=== PATIENT | male | born 1980 | race Hispanic/Latino ===

== ENCOUNTER 2017-08-15 11:25 | Inpatient (IN) | payer BC ==
[2017-08-15 11:29] VITALS: BMI 27.9
--- NOTE | 2017-08-15 11:53 | ED PDOC ---
Lower Extremity Pain/Injury Time Seen by Provider: 08/15/17 11:52 Chief Complaint (Nursing): Lower Extremity Problem/Injury Chief Complaint (Provider): leg pain History Per: Patient Additional Complaint(s): 36-year-old male with no past medical history presents to emergency department complaining of bilateral leg pain and cramping that started after patient did a spin class on Sunday. Patient states this was the first time he worked out in several months. Patient states pain is worse since Sunday and he is unable to bend his legs without severe discomfort. Patient has been taking Tylenol which has not helped. Denies fever or chills. He denies any chest pain, shortness of breath or dyspnea on exertion. PMD: [employer] Past Medical History Reviewed: Historical Data, Nursing Documentation, Vital Signs Vital Signs: Last Vital Signs Temp 98.6 F 08/15/17 11:43 Pulse 74 08/15/17 11:43 Resp 20 08/15/17 11:43 BP 149/94 H 08/15/17 11:43 Pulse Ox 99 08/15/17 11:43 - Medical History PMH: No Chronic Diseases - Surgical History Other surgeries: eye surgery - Family History Family History: States: No Known Family Hx - Living Arrangements Living Arrangements: With Family - Home Medications Home Medications: Ambulatory Orders Medication Instructions Recorded Multivit-Minerals/Folic Acid 1 tab PO DAILY 08/15/17 [Adult Multi Gummies] - Allergies Allergies/Adverse Reactions: Allergies Allergy/AdvReac Type Severity Reaction Status Date / Time Sulfa (Sulfonamide Allergy RASH Verified 08/15/17 11:42 Antibiotics) bee stings Allergy SWELLING Uncoded 08/15/17 11:42 Wells Criteria for PE - Wells Criteria for Pulmonary Embolism Clinical Signs and Symptoms of DVT: No P.E is #1 Diagnosis, or Equally Likely: No Heart Rate >100: No Immobilization at least 3 days;Surgery previous 4 weeks: No Previous, objectively diagnosed PE or DVT: No Hemoptysis: No Malignancy w/treatment within 6 months, or palliative: No Total Score: 0 Review of Systems ROS Statement: Except As Marked, All Systems Reviewed And Found Negative Constitutional: Negative for: Fever Cardiovascular: Negative for: Chest Pain Respiratory: Negative for: Cough Gastrointestinal: Negative for: Nausea, Vomiting Musculoskeletal: Positive for: Leg Pain Physical Exam - Reviewed Nursing Documentation Reviewed: Yes Vital Signs Reviewed: Yes - Physical Exam Appears: Positive for: Well, Non-toxic, No Acute Distress Skin: Negative for: Rash Eye Exam: Positive for: Normal appearance Cardiovascular/Chest: Positive for: Regular Rate, Rhythm Respiratory: Positive for: Normal Breath Sounds. Negative for: Wheezing, Respiratory Distress Extremity: Positive for: Other (Full range of motion of bilateral knees and hips with pain, no calf tenderness bilaterally) Neurologic/Psych: Positive for: Alert, Oriented - Laboratory Results Result Diagrams: 08/15/17 12:55 08/15/17 12:55 Urine dip results: Positive for: Blood (moderate), Protein (trace). Negative for: Leukocyte Esterase, Nitrate, Ketones, Glucose, Bilirubin - ECG Interpretation Of ECG: NSR 70 bpm, no acute finding, reviewed by PA and ED attending O2 Sat by Pulse Oximetry: 99 Pulse Ox Interpretation: Normal - Other Rad CXR X-Ray: Interpreted by Me, Viewed By Me X-Ray Interpretation: no acute finding Medical Decision Making Medical Decision Makin36 year old with bilateral leg pain Plan: CBC CMP CPK PO flexeril IV toradol IVF Urine dip PMD is [employer], case was d/w David Vergara NP, who will admit patient. Patient is aware of and agrees with admission. Spoke with Dr. Alice Beckham for nephrology consult, he states to order serum uric acid and urine myoglobin and started NS at 250 cc after 2nd bolus. Spoke with Dr. Delaney for GI consult, states to order hepatitis panel and abd US. Disposition - Clinical Impression Clinical Impression: Rhabdomyolysis - Disposition Disposition Time: 14:28 Condition: FAIR - Pt Status Changed To: Hospital Disposition Of: Inpatient - Admit Certification Admit to Inpatient:: After my assessment, the patient will require hospitalization for at least two midnights. This is because of the severity of symptoms shown, intensity of services needed, and/or the medical risk in this patient being treated as an outpatient. - POA Present On Arrival: None Results - Lab Results Lab Results: 08/15/17 08/15/17 12:55 12:55 WBC 11.2 H RBC 5.14 Hgb 15.9 Hct 45.9 MCV 89.2 MCH 30.9 MCHC 34.7 RDW 13.1 Plt Count 308 MPV 8.4 Neut % (Auto) 71.2 Lymph % (Auto) 19.1 L [place] % (Auto) 6.7 Eos % (Auto) 2.3 Baso % (Auto) 0.7 Neut # (Auto) 8.0 H Lymph # (Auto) 2.1 [place] # (Auto) 0.8 Eos # (Auto) 0.3 Baso # (Auto) 0.1 Sodium 142 Potassium 4.5 Chloride 103 Carbon Dioxide 30 Anion Gap 14 BUN 10 Creatinine 0.9 Est GFR ( Amer) > 60 Est GFR (Non-Af Amer) > 60 Random Glucose 90 Calcium 9.4 Total Bilirubin 0.7 AST 1443 H ALT 312 H Alkaline Phosphatase 74 Total Creatine Kinase 94118 H Total Protein 7.3 Albumin 4.3 Globulin 3.1 Albumin/Globulin Ratio 1.4
[2017-08-15] MEDS ORDERED: Sodium Chloride 0.9% 1,000 ML IV STA ×3 (12:14→14:17)
[2017-08-15 13:12] LABS: BASO # 0.1 K/uL (0.0-0.2); BASO % 0.7 % (0.0-2.0); EOS # 0.3 K/uL (0.0-0.7); EOS % 2.3 % (0.0-4.0); HEMOGLOBIN 15.9 g/dL (12.0-18.0); LYMPH # 2.1 K/uL (1.0-4.3); LYMPH % 19.1 % (20.0-40.0); MEAN CELL VOLUME 89.2 fl (80.0-94.0); MEAN CORPUSCULAR HEMOGLOBIN 30.9 pg (27.0-31.0); MEAN CORPUSCULAR HGB CONC 34.7 g/dL (33.0-37.0); MEAN PLATELET VOLUME 8.4 fl (7.2-11.7); MONO # 0.8 K/uL (0.0-0.8); MONO % 6.7 % (0.0-10.0); NEUT % 71.2 % (50.0-75.0); NRBC % 0.1 % (0.0-0.0); RBC 5.14 Mil/uL (4.40-5.90); RED CELL DISTRIBUTION WIDTH 13.1 % (11.5-14.5); WHITE BLOOD COUNT 11.2 K/uL (4.8-10.8)
[2017-08-15 13:25] LABS: ALB/GLOB RATIO 1.4 (1.0-2.1); ALBUMIN 4.3 g/dL (3.5-5.0); ALT/SGPT 312 U/L (21-72); BLOOD UREA NITROGEN 10 mg/dl (9-20); CALCIUM 9.4 mg/dL (8.4-10.2); GFR AFRICAN-AMERICAN > 60; GFR NON-AFRICAN AMERICAN > 60
[2017-08-15 13:44] LABS: AST/SGOT 1443 U/L (17-59)
--- NOTE | 2017-08-15 15:15 | RAD ---
HISTORY: admit COMPARISON: No prior. FINDINGS: LUNGS: No active pulmonary disease. PLEURA: No significant pleural effusion identified, no pneumothorax apparent. CARDIOVASCULAR: Normal. OSSEOUS STRUCTURES: No significant abnormalities. VISUALIZED UPPER ABDOMEN: Normal. OTHER FINDINGS: None. IMPRESSION: No active disease.
[2017-08-15 15:30] LABS: BARBITURATES, UR NEGATIVE (NEGATIVE); BENZODIAZEPINES, UR NEGATIVE (NEGATIVE); OPIATES, UR NEGATIVE (NEGATIVE); PHENCYCLIDINE, UR NEGATIVE (NEGATIVE)
--- NOTE | 2017-08-15 16:54 | US ---
HISTORY: elevated LFT's COMPARISON: None. TECHNIQUE: Sonographic evaluation of the abdomen. FINDINGS: LIVER: Measures 18.6 cm. Heterogeneous increased echogenicity of the liver parenchyma. No mass. No intrahepatic bile duct dilatation. GALLBLADDER: Unremarkable. No gallstones. COMMON BILE DUCT: Measures 4 mm. No stones. No dilatation. PANCREAS: Unremarkable as visualized. No mass. No ductal dilatation. RIGHT KIDNEY: Measures 12 x 4.7 x 3.7cm. Normal echogenicity. No calculus, mass, or hydronephrosis. LEFT KIDNEY: Measures 13.1 x 3.8 x 4.2cm. Normal echogenicity. No calculus, mass, or hydronephrosis. SPLEEN: The spleen is mildly enlarged measures 13.8 centimeter. AORTA: No aneurysmal dilatation. IVC: Unremarkable. OTHER FINDINGS: None. IMPRESSION: Heterogeneous echogenic and mildly enlarged liver suggestive of hepatic steatosis or liver parenchymal disease. Mild splenomegaly measures up to 13.8 centimeter. No evidence of cholelithiasis or cholecystitis.
[2017-08-15 21:07] LABS: HEPATITIS B SURFACE AG Negative (NEGATIVE)
[2017-08-15 21:12] LABS: HEPATITIS A IGM NEGATIVE (NEGATIVE); HEPATITIS B CORE AB NEGATIVE (NEGATIVE)
[2017-08-15 21:24] LABS: HEPATITIS C ANTIBODY NEGATIVE (NEGATIVE)
[2017-08-16] MEDS: Sodium Chloride 0.9% 1,000 ML IV SCH ×3 (02:38→12:35)
[2017-08-16 06:40] LABS: BASO # 0.1 K/uL (0.0-0.2); BASO % 0.8 % (0.0-2.0); EOS # 0.4 K/uL (0.0-0.7); EOS % 4.2 % (0.0-4.0); HEMOGLOBIN 14.4 g/dL (12.0-18.0); LYMPH # 2.9 K/uL (1.0-4.3); MEAN CELL VOLUME 89.3 fl (80.0-94.0); MEAN CORPUSCULAR HEMOGLOBIN 31.1 pg (27.0-31.0); MEAN CORPUSCULAR HGB CONC 34.8 g/dL (33.0-37.0); MEAN PLATELET VOLUME 8.2 fl (7.2-11.7); MONO # 0.8 K/uL (0.0-0.8); MONO % 7.6 % (0.0-10.0); NEUT # 5.8 K/uL (1.8-7.0); NEUT % 58.4 % (50.0-75.0); NRBC % 0.1 % (0.0-0.0); RBC 4.62 Mil/uL (4.40-5.90)
[2017-08-16 07:34] LABS: ALB/GLOB RATIO 1.2 (1.0-2.1); ALBUMIN 3.3 g/dL (3.5-5.0); ALT/SGPT 251 U/L (21-72); BLOOD UREA NITROGEN 13 mg/dl (9-20); GFR AFRICAN-AMERICAN > 60; GFR NON-AFRICAN AMERICAN > 60
[2017-08-16 08:11] LABS: AST/SGOT 1052 U/L (17-59)
--- NOTE | 2017-08-16 08:43 | CP.PCM.HP ---
History of Present Illness - History of Present Illness History of Present Illness: pt admitted for rhabdomyelitis after doing spin class. c/o muscle cramping. no f /c, n/v/d. no med/surg hx. all labs and imaging noted Present on Admission - Present on Admission Any Indicators Present on Admission: No Review of Systems - Musculoskeletal Musculoskeletal: As Per HPI, Muscle Cramps, Myalgias Past Patient History - Past Medical History & Family History Past Medical History?: No - Past Social History Smoking Status: Never Smoked - MUSCULOSKELETAL/RHEUMATOLOGICAL Hx Falls: No - PSYCHIATRIC Hx Substance Use: No - SURGICAL HISTORY Hx Eye Surgery: Yes - ANESTHESIA Hx Anesthesia: Yes Hx Anesthesia Reactions: No Meds Allergies/Adverse Reactions: Allergies Allergy/AdvReac Type Severity Reaction Status Date / Time Sulfa (Sulfonamide Allergy RASH Verified 08/15/17 11:42 Antibiotics) bee stings Allergy SWELLING Uncoded 08/15/17 11:42 Physical Exam - Constitutional Appears: Well, Non-toxic, No Acute Distress - Head Exam Head Exam: ATRAUMATIC, NORMAL INSPECTION, NORMOCEPHALIC - Eye Exam Eye Exam: EOMI, Normal appearance, PERRL Pupil Exam: NORMAL ACCOMODATION, PERRL - ENT Exam ENT Exam: Mucous Membranes Moist, Normal Exam - Neck Exam Neck exam: Positive for: Normal Inspection - Respiratory Exam Respiratory Exam: Clear to Auscultation Bilateral, NORMAL BREATHING PATTERN - Cardiovascular Exam Cardiovascular Exam: REGULAR RHYTHM, RRR, +S1, +S2 - GI/Abdominal Exam GI & Abdominal Exam: Normal Bowel Sounds, Soft. absent: Tenderness - Extremities Exam Extremities exam: Positive for: full ROM, normal capillary refill, normal inspection, pedal pulses present - Back Exam Back exam: NORMAL INSPECTION - Neurological Exam Neurological exam: Alert, CN II-XII Intact, Normal Gait, Oriented x3, Reflexes Normal - Psychiatric Exam Psychiatric exam: Normal Affect, Normal Mood - Skin Skin Exam: Dry, Intact, Normal Color, Warm Results - Vital Signs Recent Vital Signs: Last Vital Signs Temp 98.0 F 08/16/17 07:57 Pulse 77 08/16/17 07:57 Resp 18 08/16/17 07:57 BP 120/77 08/16/17 07:57 Pulse Ox 97 08/16/17 07:57 - Labs Result Diagrams: 08/16/17 05:30 08/16/17 05:30 Labs: Laboratory Results - last 24 hr 08/15/17 08/15/17 08/15/17 12:55 12:55 14:45 WBC 11.2 H RBC 5.14 Hgb 15.9 Hct 45.9 MCV 89.2 MCH 30.9 MCHC 34.7 RDW 13.1 Plt Count 308 MPV 8.4 Neut % (Auto) 71.2 Lymph % (Auto) 19.1 L [place] % (Auto) 6.7 Eos % (Auto) 2.3 Baso % (Auto) 0.7 Neut # (Auto) 8.0 H Lymph # (Auto) 2.1 [place] # (Auto) 0.8 Eos # (Auto) 0.3 Baso # (Auto) 0.1 Sodium 142 Potassium 4.5 Chloride 103 Carbon Dioxide 30 Anion Gap 14 BUN 10 Creatinine 0.9 Est GFR ( Amer) > 60 Est GFR (Non-Af Amer) > 60 Random Glucose 90 Uric Acid 5.4 Calcium 9.4 Total Bilirubin 0.7 AST 1443 H ALT 312 H Alkaline Phosphatase 74 Total Creatine Kinase 55747 H Total Protein 7.3 Albumin 4.3 Globulin 3.1 Albumin/Globulin Ratio 1.4 Urine Opiates Screen Urine Methadone Screen Ur Barbiturates Screen Ur Phencyclidine Scrn Ur Amphetamines Screen U Benzodiazepines Scrn U Oth Cocaine Metabols U Cannabinoids Screen Hepatitis A IgM Ab Hep Bs Antigen Hep B Core IgM Ab Hepatitis C Antibody 08/15/17 08/15/17 08/16/17 14:45 14:55 05:30 WBC 10.0 RBC 4.62 Hgb 14.4 Hct 41.3 MCV 89.3 MCH 31.1 H MCHC 34.8 RDW 13.0 Plt Count 262 MPV 8.2 Neut % (Auto) 58.4 Lymph % (Auto) 29.0 [place] % (Auto) 7.6 Eos % (Auto) 4.2 H Baso % (Auto) 0.8 Neut # (Auto) 5.8 Lymph # (Auto) 2.9 [place] # (Auto) 0.8 Eos # (Auto) 0.4 Baso # (Auto) 0.1 Sodium Potassium Chloride Carbon Dioxide Anion Gap BUN Creatinine Est GFR ( Amer) Est GFR (Non-Af Amer) Random Glucose Uric Acid Calcium Total Bilirubin AST ALT Alkaline Phosphatase Total Creatine Kinase Total Protein Albumin Globulin Albumin/Globulin Ratio Urine Opiates Screen Negative Urine Methadone Screen Negative Ur Barbiturates Screen Negative Ur Phencyclidine Scrn Negative Ur Amphetamines Screen Negative U Benzodiazepines Scrn Negative U Oth Cocaine Metabols Negative U Cannabinoids Screen Negative Hepatitis A IgM Ab Negative Hep Bs Antigen Negative Hep B Core IgM Ab Negative Hepatitis C Antibody Negative 08/16/17 05:30 WBC RBC Hgb Hct MCV MCH MCHC RDW Plt Count MPV Neut % (Auto) Lymph % (Auto) [place] % (Auto) Eos % (Auto) Baso % (Auto) Neut # (Auto) Lymph # (Auto) [place] # (Auto) Eos # (Auto) Baso # (Auto) Sodium 141 Potassium 4.5 Chloride 106 Carbon Dioxide 29 Anion Gap 11 BUN 13 Creatinine 0.9 Est GFR ( Amer) > 60 Est GFR (Non-Af Amer) > 60 Random Glucose 87 Uric Acid Calcium 9.0 Total Bilirubin 0.9 AST 1052 H ALT 251 H Alkaline Phosphatase 61 Total Creatine Kinase 59679 H Total Protein 6.1 L Albumin 3.3 L D Globulin 2.8 Albumin/Globulin Ratio 1.2 Urine Opiates Screen Urine Methadone Screen Ur Barbiturates Screen Ur Phencyclidine Scrn Ur Amphetamines Screen U Benzodiazepines Scrn U Oth Cocaine Metabols U Cannabinoids Screen Hepatitis A IgM Ab Hep Bs Antigen Hep B Core IgM Ab Hepatitis C Antibody Assessment & Plan (1) DVT prophylaxis Assessment and Plan: scd nad ae hose ambulation Status: Acute (2) Rhabdomyolysis Assessment and Plan: ivf monitor cpk and lft abd us and hepatitis negative pain control gi/nephro Status: Acute Decision To Admit - Pt Status Changed To: Hospital Disposition Of: Inpatient - Admit Certification Admit to Inpatient:: After my assessment, the patient will require hospitalization for at least two midnights. This is because of the severity of symptoms shown, intensity of services needed, and/or the medical risk in this patient being treated as an outpatient. - . Bed Request Type: Med/Surg Admitting Physician: Zander Hastings
[2017-08-16] MEDS: Multivitamin With Minerals Tab PO SCH (08:45)
[2017-08-16 10:17] LABS: URINE BILIRUBIN NEGATIVE (NEGATIVE); URINE BLOOD SMALL (NEGATIVE); URINE CLARITY CLEAR (Clear); URINE COLOR STRAW (YELLOW); URINE GLUCOSE (UA) NEG (Normal); URINE LEUKOCYTE ESTERASE NEG Leu/uL (Negative); URINE NITRATE NEGATIVE (NEGATIVE); URINE PROTEIN NEGATIVE (NEGATIVE); URINE UROBILINOGEN 0.2-1.0 mg/dL (0.2-1.0)
--- NOTE | 2017-08-16 10:17 | CP.PCM.CON ---
History of Present Illness - History of Present Illness History of Present Illness: This patient is a 36 years of age I was called to see him for consultation because of rhabdomyolysis and kidney evaluation. This gentleman has done excessive exercise by Sunday and about 24 hours later started to have pain and lower extremity among other places and on Sunday he continued to have. He has a blood test and he came to the emergency room on Sunday because of the severity of the pain and cramp and noted to CPK over 68,000 Patient denied any history of drug and he has not done exercise previously known history of hypertension or history of diabetes and is not taken any medications. Social history noncontributory Review of Systems - Constitutional Constitutional: absent: Anorexia, Chills - EENT Nose/Mouth/Throat: As Per HPI. absent: Nasal Congestion - Cardiovascular Cardiovascular: absent: As Per HPI, Acrocyanosis, Chest Pain, Chest Pain at Rest , Chest Pain with Activity, Claudication, Diaphoresis, Dyspnea, Dyspnea on Exertion, Edema, Irregular Heart Rhythm, Pain Radiating to Arm/Neck/Jaw, Leg Edema, Leg Ulcers, Lightheadedness, Orthopnea, Palpitations, Paroxysmal Nocturnal Dyspnea, Pedal Edema, Radiating Pain, Rapid Heart Rate, Slow Heart Rate, Syncope, Other - Respiratory Respiratory: absent: As Per HPI, Cough, Dyspnea, Hemoptysis, Dyspnea on Exertion , Wheezing, Snoring, Stridor, Pain on Inspiration, Chest Congestion, Excessive Mucous Production, Change in Mucous Color, Pain with Coughing, Other - Gastrointestinal Gastrointestinal: absent: As Per HPI, Abdominal Pain, Belching, Bloating, Change in Bowel Habits, Change in Stool Character, Coffee Ground Emesis, Constipation, Cramping, Diarrhea, Dyspepsia, Dysphagia, Early Satiety, Excessive Flatus, Fecal Incontinence, Heartburn, Hematemesis, Hematochezia, Loose Stools, Melena, Nausea, Odynophagia, Temesmus, Vomiting, Other - Genitourinary Genitourinary: Nocturia - Musculoskeletal Musculoskeletal: Muscle Cramps, Muscle Weakness, Myalgias - Integumentary Integumentary: absent: As Per HPI, Acne, Alopecia, Bleeding Lesions, Change in Hair, Change in Nails, Change in Pigmentation, Changing Lesions, Dry Skin, Erythema, Furuncle, Hirsutism, Lesions, New Lesions, Non-Healing Lesions, Photosensitivity, Pruritus, Rash, Skin Pain, Skin Ulcer, Sores, Striae, Swelling , Unusual Bruising, Wounds, Jaundice, Other - Neurological Neurological: absent: Confusion, Headaches, Loss of Vision - Psychiatric Psychiatric: absent: Abnormal Sleep Pattern, Anxiety - Hematologic/Lymphatic Hematologic: absent: Easy Bleeding Past Patient History - Past Medical History & Family History Past Medical History?: No - Past Social History Smoking Status: Never Smoked - MUSCULOSKELETAL/RHEUMATOLOGICAL Hx Falls: No - PSYCHIATRIC Hx Substance Use: No - SURGICAL HISTORY Hx Eye Surgery: Yes - ANESTHESIA Hx Anesthesia: Yes Hx Anesthesia Reactions: No Meds Allergies/Adverse Reactions: Allergies Allergy/AdvReac Type Severity Reaction Status Date / Time Sulfa (Sulfonamide Allergy RASH Verified 08/15/17 11:42 Antibiotics) bee stings Allergy SWELLING Uncoded 08/15/17 11:42 - Medications Medications: Current Medications Sodium Chloride (Sodium Chloride 0.9%) 1,000 mls @ 150 mls/hr IV .Q6H40M [facility] Stop: 08/16/17 15:19 Last Admin: 08/16/17 05:51 Dose: Not Given Ketorolac Tromethamine (Toradol) 30 mg IVP Q6 PRN PRN Reason: pain 6-10 Last Admin: 08/15/17 22:11 Dose: 30 mg Multivitamins/Minerals (Therapeutic-M Tab) 1 tab PO DAILY [facility] Last Admin: 08/16/17 08:45 Dose: 1 tab Physical Exam - Constitutional Appears: No Acute Distress - ENT Exam ENT Exam: Mucous Membranes Moist - Neck Exam Neck exam: Negative for: Lymphadenopathy - Respiratory Exam Respiratory Exam: absent: Chest Wall Tenderness - Cardiovascular Exam Cardiovascular Exam: REGULAR RHYTHM. absent: JVD, Rubs - GI/Abdominal Exam GI & Abdominal Exam: Normal Bowel Sounds - Extremities Exam Extremities exam: Negative for: calf tenderness - Back Exam Back exam: absent: CVA tenderness (L), CVA tenderness (R) - Neurological Exam Neurological exam: Alert - Psychiatric Exam Psychiatric exam: Normal Affect - Skin Skin Exam: Normal Color Results - Vital Signs Recent Vital Signs: Last Vital Signs Temp 98.0 F 08/16/17 07:57 Pulse 77 08/16/17 07:57 Resp 18 08/16/17 07:57 BP 120/77 08/16/17 07:57 Pulse Ox 97 02/08/18 07:57 - Labs Result Diagrams: 08/16/17 05:30 08/16/17 05:30 Labs: Laboratory Results - last 24 hr 08/15/17 08/15/17 08/15/17 12:55 12:55 14:45 WBC 11.2 H RBC 5.14 Hgb 15.9 Hct 45.9 MCV 89.2 MCH 30.9 MCHC 34.7 RDW 13.1 Plt Count 308 MPV 8.4 Neut % (Auto) 71.2 Lymph % (Auto) 19.[address] [place] % (Auto) 6.7 Eos % (Auto) 2.3 Baso % (Auto) 0.7 Neut # (Auto) 8.0 H Lymph # (Auto) 2.1 [place] # (Auto) 0.8 Eos # (Auto) 0.3 Baso # (Auto) 0.1 Sodium 142 Potassium 4.5 Chloride 103 Carbon Dioxide 30 Anion Gap 14 BUN 10 Creatinine 0.9 Est GFR ( Amer) > 60 Est GFR (Non-Af Amer) > 60 Random Glucose 90 Uric Acid 5.4 Calcium 9.4 Total Bilirubin 0.7 AST 1443 H ALT 312 H Alkaline Phosphatase 74 Total Creatine Kinase 90877 H Total Protein 7.3 Albumin 4.3 Globulin 3.1 Albumin/Globulin Ratio 1.4 Urine Opiates Screen Urine Methadone Screen Ur Barbiturates Screen Ur Phencyclidine Scrn Ur Amphetamines Screen U Benzodiazepines Scrn U Oth Cocaine Metabols U Cannabinoids Screen Hepatitis A IgM Ab Hep Bs Antigen Hep B Core IgM Ab Hepatitis C Antibody 08/15/17 08/15/17 08/16/17 14:45 14:55 05:30 WBC 10.0 RBC 4.62 Hgb 14.4 Hct 41.3 MCV 89.3 MCH 31.1 H MCHC 34.8 RDW 13.0 Plt Count 262 MPV 8.2 Neut % (Auto) 58.4 Lymph % (Auto) 29.0 [place] % (Auto) 7.6 Eos % (Auto) 4.2 H Baso % (Auto) 0.8 Neut # (Auto) 5.8 Lymph # (Auto) 2.9 [place] # (Auto) 0.8 Eos # (Auto) 0.4 Baso # (Auto) 0.1 Sodium Potassium Chloride Carbon Dioxide Anion Gap BUN Creatinine Est GFR ( Amer) Est GFR (Non-Af Amer) Random Glucose Uric Acid Calcium Total Bilirubin AST ALT Alkaline Phosphatase Total Creatine Kinase Total Protein Albumin Globulin Albumin/Globulin Ratio Urine Opiates Screen Negative Urine Methadone Screen Negative Ur Barbiturates Screen Negative Ur Phencyclidine Scrn Negative Ur Amphetamines Screen Negative U Benzodiazepines Scrn Negative U Oth Cocaine Metabols Negative U Cannabinoids Screen Negative Hepatitis A IgM Ab Negative Hep Bs Antigen Negative Hep B Core IgM Ab Negative Hepatitis C Antibody Negative 08/16/17 05:30 WBC RBC Hgb Hct MCV MCH MCHC RDW Plt Count MPV Neut % (Auto) Lymph % (Auto) [place] % (Auto) Eos % (Auto) Baso % (Auto) Neut # (Auto) Lymph # (Auto) [place] # (Auto) Eos # (Auto) Baso # (Auto) Sodium 141 Potassium 4.5 Chloride 106 Carbon Dioxide 29 Anion Gap 11 BUN 13 Creatinine 0.9 Est GFR ( Amer) > 60 Est GFR (Non-Af Amer) > 60 Random Glucose 87 Uric Acid Calcium 9.0 Total Bilirubin 0.9 AST 1052 H ALT 251 H Alkaline Phosphatase 61 Total Creatine Kinase 07411 H Total Protein 6.1 L Albumin 3.3 L D Globulin 2.8 Albumin/Globulin Ratio 1.2 Urine Opiates Screen Urine Methadone Screen Ur Barbiturates Screen Ur Phencyclidine Scrn Ur Amphetamines Screen U Benzodiazepines Scrn U Oth Cocaine Metabols U Cannabinoids Screen Hepatitis A IgM Ab Hep Bs Antigen Hep B Core IgM Ab Hepatitis C Antibody Assessment & Plan (1) Rhabdomyolysis Assessment and Plan: Patient is a 36 years of age admitted because of severe muscle cramps and muscle pain and very high CPK over 60,000 consistent with acute rhabdomyolysis. Patient was given 2 L of intravenous fluid in the emergency room as fast as possible. Continue to receive 150 mL/h this morning in addition to his steak and normal fluid and force fluid orally as well Kidney function remain normal CO2 in the range of 29-30 Serum electrolytes okay serum uric acid noted to be okay Urine myoglobin has been ordered Stat urinalysis We may have to consider alkalinizing urine given sodium bicarbonate to keep urine pH about 6 or above. In meantime his doing fine and the pain is improving Status: Acute
--- NOTE | 2017-08-16 11:26 | CARD ---
APPROVED REPORT EKG Measurement Heart [id number] <Conclusion> Normal sinus rhythm Normal ECG
[2017-08-17] MEDS: Sodium Chloride 0.9% 1,000 ML IV SCH ×3 (04:20→20:47)
[2017-08-17 06:41] LABS: BASO # 0.1 K/uL (0.0-0.2); BASO % 0.8 % (0.0-2.0); EOS # 0.4 K/uL (0.0-0.7); EOS % 4.4 % (0.0-4.0); LYMPH # 2.5 K/uL (1.0-4.3); LYMPH % 28.3 % (20.0-40.0); MEAN CELL VOLUME 89.4 fl (80.0-94.0); MEAN CORPUSCULAR HEMOGLOBIN 31.3 pg (27.0-31.0); MEAN PLATELET VOLUME 8.2 fl (7.2-11.7); MONO # 0.6 K/uL (0.0-0.8); MONO % 6.5 % (0.0-10.0); NEUT # 5.2 K/uL (1.8-7.0); NRBC % 0.1 % (0.0-0.0); RBC 4.48 Mil/uL (4.40-5.90); RED CELL DISTRIBUTION WIDTH 13.1 % (11.5-14.5); WHITE BLOOD COUNT 8.7 K/uL (4.8-10.8)
[2017-08-17 07:04] LABS: ALB/GLOB RATIO 1.3 (1.0-2.1); ALBUMIN 3.3 g/dL (3.5-5.0); ALT/SGPT 234 U/L (21-72); AST/SGOT 709 U/L (17-59); BLOOD UREA NITROGEN 12 mg/dl (9-20); CALCIUM 8.3 mg/dL (8.4-10.2); GFR AFRICAN-AMERICAN > 60; GFR NON-AFRICAN AMERICAN > 60
[2017-08-17] MEDS: Multivitamin With Minerals Tab PO SCH (09:37)
--- NOTE | 2017-08-17 10:12 | CP.PCM.PN ---
Subjective - Date & Time of Evaluation Date of Evaluation: 08/17/17 Time of Evaluation: 10:11 - Subjective Subjective: doing well Objective - Vital Signs/Intake and Output Vital Signs (last 24 hours): Temp Pulse Resp BP Pulse Ox 98.1 F 64 19 117/74 96 08/17/17 07:52 08/17/17 07:52 08/17/17 07:52 08/17/17 07:52 08/17/17 07:52 - Medications Medications: Current Medications Sodium Chloride (Sodium Chloride 0.9%) 1,000 mls @ 150 mls/hr IV .Q6H40M [facility] Stop: 08/18/17 09:00 Ketorolac Tromethamine (Toradol) 30 mg IVP Q6 PRN PRN Reason: pain 6-10 Last Admin: 08/17/17 02:28 Dose: 30 mg Multivitamins/Minerals (Therapeutic-M Tab) 1 tab PO DAILY [facility] Last Admin: 08/17/17 09:37 Dose: 1 tab - Labs Labs: 08/17/17 05:35 08/17/17 05:35 - Neck Exam Neck Exam: Normal Inspection - Respiratory Exam Respiratory Exam: NORMAL BREATHING PATTERN - Cardiovascular Exam Cardiovascular Exam: REGULAR RHYTHM Assessment and Plan - Assessment and Plan (Free Text) Assessment: 36 yo male with rhabdomyolysis sonogram noted lft improving continue rehydration dc planning when able
--- NOTE | 2017-08-17 11:20 | CP.PCM.PN ---
Subjective - Date & Time of Evaluation Date of Evaluation: 08/17/17 Time of Evaluation: 11:20 - Subjective Subjective: pt doing well, w/o pain, distress. no f/c, n/v/d. bw noted and cpk trending down cleared by gi for dc and pemnding nephro clearance for dc Objective - Vital Signs/Intake and Output Vital Signs (last 24 hours): Temp Pulse Resp BP Pulse Ox 98.1 F 64 19 117/74 96 08/17/17 07:52 08/17/17 07:52 08/17/17 07:52 08/17/17 07:52 08/17/17 07:52 - Medications Medications: Current Medications Sodium Chloride (Sodium Chloride 0.9%) 1,000 mls @ 150 mls/hr IV .Q6H40M [facility] [place] Stop: 08/18/17 09:00 Ketorolac Tromethamine (Toradol) 30 mg IVP Q6 PRN PRN Reason: pain 6-10 Last Admin: 08/17/17 02:28 Dose: 30 mg Multivitamins/Minerals (Therapeutic-M Tab) 1 tab PO DAILY [facility] [place] Last Admin: 08/17/17 09:37 Dose: 1 tab - Labs Labs: 08/17/17 05:35 08/17/17 05:35 - Constitutional Appears: Well, Non-toxic, No Acute Distress - Head Exam Head Exam: ATRAUMATIC, NORMAL INSPECTION, NORMOCEPHALIC - Eye Exam Eye Exam: EOMI, Normal appearance, PERRL Pupil Exam: NORMAL ACCOMODATION, PERRL - ENT Exam ENT Exam: Mucous Membranes Moist, Normal Exam - Neck Exam Neck Exam: Full ROM, Normal Inspection. absent: Lymphadenopathy - Respiratory Exam Respiratory Exam: Clear to Ausculation Bilateral, NORMAL BREATHING PATTERN - Cardiovascular Exam Cardiovascular Exam: REGULAR RHYTHM, RRR, +S1, +S2. absent: Murmur - GI/Abdominal Exam GI & Abdominal Exam: Soft, Normal Bowel Sounds. absent: Tenderness - Extremities Exam Extremities Exam: Full ROM, Normal Capillary Refill, Normal Inspection. absent : Joint Swelling, Pedal Edema - Back Exam Back Exam: NORMAL INSPECTION - Neurological Exam Neurological Exam: Alert, Awake, CN II-XII Intact, Normal Gait, Oriented x3 - Psychiatric Exam Psychiatric exam: Normal Affect, Normal Mood - Skin Skin Exam: Dry, Intact, Normal Color, Warm Assessment and Plan (1) DVT prophylaxis Status: Acute (2) Rhabdomyolysis Status: Acute - Assessment and Plan (Free Text) Assessment: (1) DVT prophylaxis Assessment and Plan: scd nad ae hose ambulation Status: Acute (2) Rhabdomyolysis Assessment and Plan: ivf monitor cpk and lft abd us and hepatitis negative pain control gi/nephro Status: Acute
--- NOTE | 2017-08-17 14:56 | CP.PCM.PN ---
Subjective - Date & Time of Evaluation Date of Evaluation: 08/17/17 Time of Evaluation: 14:53 - Subjective Subjective: DOING BETTER LESS MUSCULAR PAIN Objective - Vital Signs/Intake and Output Vital Signs (last 24 hours): Temp Pulse Resp BP Pulse Ox 98.1 F 64 19 117/74 96 08/17/17 07:52 08/17/17 07:52 08/17/17 07:52 08/17/17 07:52 08/17/17 07:52 - Medications Medications: Current Medications Sodium Chloride (Sodium Chloride 0.9%) 1,000 mls @ 150 mls/hr IV .Q6H40M [facility] Stop: 08/18/17 09:00 Ketorolac Tromethamine (Toradol) 30 mg IVP Q6 PRN PRN Reason: pain 6-10 Last Admin: 08/17/17 02:28 Dose: 30 mg Multivitamins/Minerals (Therapeutic-M Tab) 1 tab PO DAILY [facility] Last Admin: 08/17/17 09:37 Dose: 1 tab - Labs Labs: 08/17/17 05:35 08/17/17 05:35 - Constitutional Appears: No Acute Distress - ENT Exam ENT Exam: Mucous Membranes Moist - Neck Exam Neck Exam: absent: Lymphadenopathy - Respiratory Exam Respiratory Exam: absent: Chest Wall Tenderness - Cardiovascular Exam Cardiovascular Exam: REGULAR RHYTHM. absent: Rubs - GI/Abdominal Exam GI & Abdominal Exam: Soft, Normal Bowel Sounds - Extremities Exam Extremities Exam: absent: Calf Tenderness - Back Exam Back Exam: absent: CVA tenderness (L), CVA tenderness (R) - Neurological Exam Neurological Exam: Alert Assessment and Plan (1) Rhabdomyolysis Assessment [place] Plan[place] [address]+ LYTE OK KIDNEY FUNCTION OK LIVER FUNCTION BETTER CONTINUE HYDRATION TILL TOMRROW Status: Acute
--- NOTE | 2017-08-17 15:33 | CON ---
DATE: 08/15/2017 REFERRING PHYSICIAN: Dr. Vergara. REASON FOR CONSULTATION: Elevated liver function tests. HISTORY OF PRESENT ILLNESS: This is a pleasant 36-year-old male with no past medical history essentially who comes in after doing his felt pain in his legs, some nausea, no vomiting, and dark urine which is since cleared up. Currently lying in bed comfortable, in no apparent distress. PAST MEDICAL HISTORY: As above. PAST SURGICAL HISTORY: As above. MEDICATIONS: Have been reviewed. REVIEW OF SYSTEMS: All other systems have been reviewed and negative apart from the HPI. PHYSICAL EXAMINATION: VITAL SIGNS: During the hospital, grossly unremarkable. GENERAL: A pleasant middle aged male, lying in bed comfortably, in no apparent distress. HEENT: Head is normocephalic and atraumatic. Eyes: Pupils are equally round and reactive to light bilaterally. No conjunctival pallor or icterus. NECK: Supple. Normal range of motion. No lymphadenopathy appreciated. LUNGS: Coarse breath sounds bilaterally. HEART: S* and S2, regular rate and rhythm. No murmurs appreciated. ABDOMEN: Soft and nontender. Bowel sounds are present. No rebound. No guarding. RECTAL: Deferred. EXTREMITIES: Pulses present bilaterally. There is some tenderness to palpation of the bilateral legs. NEUROLOGIC: A and O x3. LABORATORY DATA: Labs have been reviewed. WBC of 11.2, hemoglobin of 15.9, hematocrit of 45.9, and platelet count is 308. AST is 1443 and ALT 312. Bilirubin is normal. Total creatine kinase is . ASSESSMENT AND PLAN: This is a 36-year-old male with history of rhabdomyolysis, aggressive intravenous hydration, ultrasound, urine toxicology, hepatitis A, B and C. Thank you for the consult. Hang Fowler MD/ PhD cc: Dr. Vergara
[2017-08-18] MEDS: Sodium Chloride 0.9% 1,000 ML IV SCH ×2 (03:24→06:28)
[2017-08-18 06:44] LABS: BASO # 0.1 K/uL (0.0-0.2); EOS # 0.4 K/uL (0.0-0.7); EOS % 4.2 % (0.0-4.0); HEMOGLOBIN 14.4 g/dL (12.0-18.0); LYMPH # 2.5 K/uL (1.0-4.3); LYMPH % 29.5 % (20.0-40.0); MEAN CELL VOLUME 89.6 fl (80.0-94.0); MEAN CORPUSCULAR HEMOGLOBIN 31.3 pg (27.0-31.0); MEAN CORPUSCULAR HGB CONC 34.9 g/dL (33.0-37.0); MEAN PLATELET VOLUME 8.3 fl (7.2-11.7); MONO # 0.6 K/uL (0.0-0.8); MONO % 6.8 % (0.0-10.0); NEUT # 4.9 K/uL (1.8-7.0); NEUT % 58.5 % (50.0-75.0); NRBC % 0.1 % (0.0-0.0); RBC 4.61 Mil/uL (4.40-5.90); RED CELL DISTRIBUTION WIDTH 12.7 % (11.5-14.5); WHITE BLOOD COUNT 8.4 K/uL (4.8-10.8)
[2017-08-18 06:53] LABS: ALB/GLOB RATIO 1.3 (1.0-2.1); ALBUMIN 3.5 g/dL (3.5-5.0); ALT/SGPT 234 U/L (21-72); AST/SGOT 599 U/L (17-59); BLOOD UREA NITROGEN 13 mg/dl (9-20); CALCIUM 9.2 mg/dL (8.4-10.2); GFR AFRICAN-AMERICAN > 60; GFR NON-AFRICAN AMERICAN > 60
[2017-08-18 08:23] VITALS: BP 138/89; PULSE 61; RESP 20; TEMP 98.1; O2SAT 97
[2017-08-18] MEDS: Multivitamin With Minerals Tab PO SCH (09:19)
--- NOTE | 2017-08-18 10:12 | CP.PCM.DIS ---
Provider - Provider Date of Admission: 08/15/17 14:29 Attending physician: Zander Hastings MD Time Spent in preparation of Discharge (in minutes): 15 Diagnosis - Discharge Diagnosis (1) DVT prophylaxis Status: Acute (2) Rhabdomyolysis Status: Acute Hospital Course - Lab Results Lab Results: Most Recent Lab Values WBC 8.4 K/uL (4.8-10.8) 08/18/17 04:50 RBC 4.61 Mil/uL (4.40-5.90) 08/18/17 04:50 Hgb 14.4 g/dL (12.0-18.0) 08/18/17 04:50 Hct 41.3 % (35.0-51.0) 08/18/17 04:50 MCV 89.6 fl (80.0-94.0) 08/18/17 04:50 MCH 31.3 pg (27.0-31.0) H 08/18/17 04:50 MCHC 34.9 g/dL (33.0-37.0) 08/18/17 04:50 RDW 12.7 % (11.5-14.5) 08/18/17 04:50 Plt Count 276 K/uL (130-400) 08/18/17 04:50 MPV 8.3 fl (7.2-11.7) 08/18/17 04:50 Neut % (Auto) 58.5 % (50.0-75.0) 08/18/17 04:50 Lymph % (Auto) 29.5 % (20.0-40.0) 08/18/17 04:50 [place] % (Auto) 6.8 % (0.0-10.0) 08/18/17 04:50 Eos % (Auto) 4.2 % (0.0-4.0) H 08/18/17 04:50 Baso % (Auto) 1.0 % (0.0-2.0) 08/18/17 04:50 Neut # (Auto) 4.9 K/uL (1.8-7.0) 08/18/17 04:50 Lymph # (Auto) 2.5 K/uL (1.0-4.3) 08/18/17 04:50 [place] # (Auto) 0.6 K/uL (0.0-0.8) 08/18/17 04:50 Eos # (Auto) 0.4 K/uL (0.0-0.7) 08/18/17 04:50 Baso # (Auto) 0.1 K/uL (0.0-0.2) 08/18/17 04:50 Sodium 142 mmol/l (132-148) 08/18/17 04:50 Potassium 4.1 MMOL/L (3.6-5.0) 08/18/17 04:50 Chloride 104 mmol/L (98-107) 08/18/17 04:50 Carbon Dioxide 29 mmol/L (22-30) 08/18/17 04:50 Anion Gap 13 (10-20) 08/18/17 04:50 BUN 13 mg/dl (9-20) 08/18/17 04:50 Creatinine 0.9 mg/dl (0.8-1.5) 08/18/17 04:50 Est GFR ( Amer) > 60 08/18/17 04:50 Est GFR (Non-Af Amer) > 60 08/18/17 04:50 Random Glucose 82 mg/dL (75-110) 08/18/17 04:50 Uric Acid 5.4 mg/Dl (3.5-8.5) 08/15/17 14:45 Calcium 9.2 mg/dL (8.4-10.2) 08/18/17 04:50 Total Bilirubin 0.6 mg/dl (0.2-1.3) 08/18/17 04:50 AST 599 U/L (17-59) H 08/18/17 04:50 ALT 234 U/L (21-72) H 08/18/17 04:50 Alkaline Phosphatase 58 U/L (38-126) 08/18/17 04:50 Total Creatine Kinase 99911 U/L (55-170) H 08/18/17 04:50 Total Protein 6.2 G/DL (6.3-8.2) L 08/18/17 04:50 Albumin 3.5 g/dL (3.5-5.0) 08/18/17 04:50 Globulin 2.7 gm/dL (2.2-3.9) 08/18/17 04:50 Albumin/Globulin Ratio 1.3 (1.0-2.1) 08/18/17 04:50 Urine Color Straw (YELLOW) 08/16/17 10:05 Urine Clarity Clear (Clear) 08/16/17 10:05 Urine pH 7.0 (5.0-8.0) 08/16/17 10:05 Ur Specific [place] 1.009 (1.003-1.030) 08/16/17 10:05 Urine Protein Negative mg/dL (NEGATIVE) 08/16/17 10:05 Urine Glucose (UA) Neg mg/dL (Normal) 08/16/17 10:05 Urine Ketones Negative mg/dL (NEGATIVE) 08/16/17 10:05 Urine Blood Small (NEGATIVE) 08/16/17 10:05 Urine Nitrate Negative (NEGATIVE) 08/16/17 10:05 Urine Bilirubin Negative (NEGATIVE) 08/16/17 10:05 Urine Urobilinogen 0.2-1.0 mg/dL (0.2-1.0) 08/16/17 10:05 Ur Leukocyte Esterase Neg [place]/uL (Negative) 08/16/17 10:05 Urine RBC (Auto) 1 /hpf (0-3) 08/16/17 10:05 Urine Microscopic WBC < 1 /hpf (0-5) 08/16/17 10:05 Urine Myoglobin TNP 08/15/17 14:55 Urine Opiates Screen Negative (NEGATIVE) 08/15/17 14:55 Urine Methadone Screen Negative (NEGATIVE) 08/15/17 14:55 Ur Barbiturates Screen Negative (NEGATIVE) 08/15/17 14:55 Ur Phencyclidine Scrn Negative (NEGATIVE) 08/15/17 14:55 Ur Amphetamines Screen Negative (NEGATIVE) 08/15/17 14:55 U Benzodiazepines Scrn Negative (NEGATIVE) 08/15/17 14:55 U Oth Cocaine Metabols Negative (NEGATIVE) 08/15/17 14:55 U Cannabinoids Screen Negative (NEGATIVE) 08/15/17 14:55 Hepatitis A IgM Ab Negative (NEGATIVE) 08/15/17 14:45 Hep Bs Antigen Negative (NEGATIVE) 08/15/17 14:45 Hep B Core IgM Ab Negative (NEGATIVE) 08/15/17 14:45 Hepatitis C Antibody Negative (NEGATIVE) 08/15/17 14:45 - Hospital Course Hospital Course: ivf pain control neprho/gi Discharge Exam - Head Exam Head Exam: ATRAUMATIC, NORMAL INSPECTION, NORMOCEPHALIC - Eye Exam Eye Exam: EOMI, Normal appearance, PERRL Pupil Exam: NORMAL ACCOMODATION, PERRL - Respiratory Exam Respiratory Exam: Clear to PA & Lateral, NORMAL BREATHING PATTERN, UNREMARKABLE - Cardiovascular Exam Cardiovascular Exam: REGULAR RHYTHM, RRR, +S1, +S2 - GI/Abdominal Exam GI & Abdominal Exam: Normal Bowel Sounds, Soft, Unremarkable - Extremities Exam Extremities exam: full ROM, normal capillary refill, normal inspection, pedal pulses present - Neurological Exam Neurological exam: Alert, CN II-XII Intact, Normal Gait, Oriented x3, Reflexes Normal - Psychiatric Exam Psychiatric exam: Normal Affect, Normal Mood - Skin Skin Exam: Dry, Intact, Normal Color, Warm Discharge Plan - Follow Up Plan Condition: FAIR Disposition: HOME/ ROUTINE Instructions: Rhabdomyolysis (DC) Additional Instructions: follow up with primary MD sunday rted prn, meds per med rec doing well w/o complaints. cleared by nephro/gi for dc final dx-rhabdomyelysis no activity until cleared stay hydration Referrals: Zander Hastings MD [Staff Provider] - Nam Beckham MD [Staff Provider] - Hang Fowler MD, PhD [Staff Provider] -
== END 2017-08-18 11:53 | disposition home or self-care (01) | DRG 558 ==
LOC: H.ER 11:25 → H.ERHOLD 14:29 → H.MEDSURG1 16:16
PROVIDERS: ADMIT Family Medicine; ATTEND Family Medicine
DX: M62.82 Rhabdomyolysis (principal); R79.89 Other specified abnormal findings of blood chemistry; Z88.2 Allergy status to sulfonamides